=== PATIENT | female | born 1935 | race Caucasian/White ===

== ENCOUNTER → 2018-09-13 | Outpatient (REF) ==
[~2018-09-13] MED LIST: ASPIRIN E.C. 8181 MG PO; BENADRYL50 MG; BENTYL 20MG TAB20 MG PO; BENTYL 20MG20 MG/TAB PO; CELEBREX 200MG200 MG PO; CELEBREX200 MG PO; CEPHALEXIN500 M1 PO; CIPRO 500MG TA500 MG PO; CRESTOR5 MG PO; FLOMAX0.4 MG PO; LISINOPRIL20 MG PO; LOW DOSE ASPIRI81 MG PO; LUTEIN20 MG PO; NORCO 325 MG-51 TAB PO; NORCO 325 MG-7.1 TAB PO; PHENERGAN 25 TA25 MG PO; ZESTRIL 10MG10 MG PO
== END ==
LOC: ZLAB.WCH 20:13
DX: Z01.89 Encounter for other specified special examinations (principal)

== ENCOUNTER → 2018-10-09 | Outpatient (CLI) | payer MEDICARE, BC | LOC: COL.RAD 07:45 | DX: R11.0 Nausea (principal); R14.2 Eructation | CPT/HCPCS: A9541 ==